=== PATIENT | female | born 1960 | race Caucasian/White ===

== ENCOUNTER 2016-05-28 04:49 | Emergency (ER) | payer BC ==
[2016-05-28 05:38] LABS: Hematocrit 44 % (35-47); Hemoglobin 14.5 g/dl (12.0-16.0); Mean Corpuscular HGB Conc 33 g/dl (31-36); Mean Corpuscular Hemoglobin 29 pg (27-31); Mean Corpuscular Volume 87 fL (80-97); Mean Platelet Volume 8 um3 (7.4-10.4); Red Blood Count 5.05 10^6/ul (4.0-5.4); Red Cell Distribution Width 13 % (10.5-15); White Blood Count 8.1 10^3/ul (3.5-10.8)
[2016-05-28] MEDS ORDERED: Morphine INJ* 4 MG/ML 1 ML CARPUJECT IV ONE ×2 (05:46→06:40)
[2016-05-28] MEDS ORDERED: Ondansetron INJ* 2 MG/ML VIAL IV ONE (05:46)
[2016-05-28] MEDS ORDERED: NS 0.9% 1000 ML* 1,000 ML IV ONE (05:46)
--- NOTE | 2016-05-28 05:46 | ED ---
Abdominal Pain/Female - HPI Summary HPI Summary: 55F presenting for epigastric pain since 0200, acute onset. Had similar painful episode 2 days ago which resolved. Takes NSAIDs for migraine headaches intermittently - no melena, no pain with eating. - History of Current Complaint Chief Complaint: EDAbdPain Stated Complaint: ABD PAIN Time Seen by Provider: 05/28/16 05:01 Hx Obtained From: Patient ?: No Onset/Duration: Lasting Days Timing: Intermittent Episode Lasting - minutes Pain Intensity: 8 Pain Scale Used: 0-10 Numeric Radiates: Yes Radiates to: Back Character: Dull Aggravating Factor(s): Food Alleviating Factor(s): Nothing Associated Signs and Symptoms: Negative: Fever, Dizzy, Back Pain, Constipation, Blood in Stool, Urinary Symptoms Allergies/Adverse Reactions: Allergies Allergy/AdvReac Type Severity Reaction Status Date / Time No Known Allergies Allergy Verified 07/22/14 13:54 PMH/Surg Hx/FS Hx/Imm Hx Previously Healthy: Yes Endocrine/Hematology History: Reports: Hx Thyroid Disease - Cancer History Hx Chemotherapy: No Hx Radiation Therapy: No - Surgical History Surgery Procedure, Year, and Place: [facility] Infectious Disease History: No Infectious Disease History: Denies: Traveled Outside the [place] in Last 30 Days - Family History Known Family History: Positive: None - Social History Alcohol Use: Occasionally Substance Use Type: Reports: None Smoking Status (MU): Never Smoked Tobacco Review of Systems Constitutional: Negative Eyes: Negative ENT: Negative Cardiovascular: Negative Respiratory: Negative Gastrointestinal: Negative Genitourinary: Negative Musculoskeletal: Negative Skin: Negative Neurological: Negative Psychological: Normal All Other Systems Reviewed And Are Negative: Yes Physical Exam Vital Signs On Initial Exam: Initial Vitals Temp Pulse Resp BP Pulse Ox 36.4 C 75 16 129/98 100 05/28/16 04:51 05/28/16 04:51 05/28/16 04:51 05/28/16 04:51 05/28/16 04:51 Diagnostics - Vital Signs Vital Signs Temp Pulse Resp BP Pulse Ox 05/28/16 04:51 36.4 C 75 16 129/98 100 - Laboratory Lab Results: Lab Results 05/28/16 Range/Units 05:10 WBC 8.1 (3.5-10.8) 10^3/ul RBC 5.05 (4.0-5.4) 10^6/ul Hgb 14.5 (12.0-16.0) g/dl Hct 44 (35-47) % MCV 87 (80-97) fL MCH 29 (27-31) pg MCHC 33 (31-36) g/dl RDW 13 (10.5-15) % Plt Count 288 (150-450) 10^3/ul MPV 8 (7.4-10.4) um3 Neut % (Auto) 49.4 (38-83) % Lymph % (Auto) 41.3 (25-47) % Taney % (Auto) 7.5 (1-9) % Eos % (Auto) 1.4 (0-6) % Baso % (Auto) 0.4 (0-2) % Absolute Neuts (auto) 4.0 (1.5-7.7) 10^3/ul Absolute Lymphs (auto) 3.3 (1.0-4.8) 10^3/ul Absolute Monos (auto) 0.6 (0-0.8) 10^3/ul Absolute Eos (auto) 0.1 (0-0.6) 10^3/ul Absolute Basos (auto) 0 (0-0.2) 10^3/ul Absolute Nucleated RBC 0 10^3/ul Nucleated RBC % 0 Result Diagrams: 05/28/16 05:10 05/28/16 05:10 Lab Statement: Any lab studies that have been ordered have been reviewed, and results considered in the medical decision making process. Re-Evaluation - Re-Evaluation First Eval Re-Evaluation Time: 06:30 Comment: VOMITED GI COCKTAIL Abdominal Pain Fem Course/Dx - Course Course Of Treatment: ACUTE ONSET, STUTTERING PRESENTATION OF RUQ PAIN - Diagnoses Differential Diagnosis: Positive: Gall Bladder Disease - STONE, CHOLECYSTITIS, BILIARY COLIC, GASTRITIS Provider Diagnoses: Right upper quadrant abdominal pain Discharge - Discharge Plan Condition: Fair Disposition: OTHER Discharge Disposition Comment: TO DR. HILL @ 0700, PENDING GB US AND RE-EVAL
[2016-05-28] MEDS ORDERED: Al Hydrox/Mg Hydrox/Simet LIQ* 30 ML UDC PO ONE (05:47)
[2016-05-28] MEDS ORDERED: Lidocaine 2% VISCOUS* 15 ML UDC PO ONE (05:47)
[2016-05-28 05:49] LABS: Albumin 4.6 g/dL (3.2-5.2); BUN/Creatinine Ratio 19.5 (8-20); Calcium 9.9 mg/dL (8.6-10.3); EGFR African American 99.7 (>60); EGFR Non-African American 77.5 (>60); Globulin 3.2 g/dL (2-4); Potassium 3.2 mmol/L (3.5-5.0); Total Bilirubin 0.3 mg/dL (0.2-1.0); Total Protein 7.8 g/dL (6.4-8.9)
[2016-05-28] MEDS ORDERED: Metoclopramide IV* 5 MG/ML 2 ML VIAL IV ONE (06:40)
[2016-05-28 07:41] LABS: Urine Bacteria Absent (Absent); Urine Bilirubin Negative (Negative); Urine Glucose Negative (Negative); Urine Nitrite Negative (Negative)
--- NOTE | 2016-05-28 08:35 | RAD ---
Indication: Right upper quadrant pain. Real-time sonography of the right upper quadrant was performed. The liver measures 17 cm in length. There is a complex cyst in the left lobe of liver measuring 2.7 x 2.3 x 2.7 cm. This was present on prior CT dated July 21, 2011. Additional cyst is noted in the dome of the right lobe of the liver measuring up to 1.6 cm. This was also present on prior CT. No solid lesion is identified. The gallbladder demonstrates multiple gallstones. Posterior acoustic shadowing is noted. Gallbladder wall thickening measures up to 6 mm. The right kidney measures 10.4 x 4.1 x 4.7 cm. Hypoechoic lesion in the right kidney measures 10 x 9 x 13 mm and may represent a small lipoma or angiomyolipoma. The pancreatic head, neck and proximal body demonstrates no mass or pancreatic ductal dilatation. The tail is not visualized due to overlying gas. Aorta and inferior vena cava are unremarkable. IMPRESSION: Cholelithiasis with gallbladder wall thickening however no sonographic Rockwell's sign is noted. Cysts in the left lobe of liver and right lobe of liver were present on prior CT dated 2011. 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
--- NOTE | 2016-05-28 11:26 | ED ---
Progress - Progress Note Progress Note: DISCUSSED RESULTS WITH PATIENT/. PATIENT PAIN FREE AND NON TENDER TO PALP AT 11:15. DISCHARGE HOME STABLE TO F/U WITH PMD/SURGERY. WILL RETURN IF WORSE. Re-Evaluation - Re-Evaluation First Eval Re-Evaluation Time: 06:30 Comment: VOMITED GI COCKTAIL Course/Dx - Course Course Of Treatment: ACUTE ONSET, STUTTERING PRESENTATION OF RUQ PAIN - Diagnoses Provider Diagnoses: Right upper quadrant abdominal pain
[2016-05-28 11:57] VITALS: BP 112/65
== END 2016-05-28 11:53 | disposition home or self-care (01) ==
LOC: ED 04:49
DX: R10.11 Right upper quadrant pain (principal)
CPT/HCPCS: 36415; 76705; 80053; 81003; 81015; 83690; 85025; 87086; 96374; 96375; 99282; A9270-GY; J2270; J2405; J2765

== ENCOUNTER 2016-06-12 13:45 | Observation (INO) | payer BC ==
[~2016-06-12 13:45] MED LIST: Buffered Lidocaine 1% SYR 3ML* 3 ML/SYR SYRINGE INTRADERM ONE; Famotidine IV* 10 MG/ML 2 ML (20 mg) IV ONE; Metoclopramide IV* 5 MG/ML 2 ML VIAL IV PRN; Morphine INJ* 2 MG/ML 1 ML CARPUJECT IV PRN; Scopolamine 1.5 mg* PATCH TRANSDERM ONE; fentaNYL* 50 MCG/ML 2 ML VIAL (100 MCG VIAL) IV PRN; oxyCODONE/Acetamin 5/325 MG* TAB PO PRN
[2016-06-12] MEDS ORDERED: Famotidine IV* 10 MG/ML 2 ML (20 mg) ONE (14:00)
[2016-06-12] MEDS ORDERED: Scopolamine 1.5 mg* PATCH ONE (14:00)
[2016-06-12] MEDS ORDERED: ceFAZolin 2 GM PREMIX (*) 2 GM/50 ML BAG IVPB ONE (14:00)
[2016-06-12] MEDS ORDERED: Morphine INJ* 10 MG/ML 1 ML CARPUJECT ONE (14:02)
[2016-06-12] MEDS ORDERED: fentaNYL* 50 MCG/ML 2 ML VIAL (100 MCG VIAL) ONE ×2 (14:02→20:35)
[2016-06-12] MEDS ORDERED: Atracurium* 10 MG/ML 10 ML VIAL ONE (14:02)
[2016-06-12] MEDS ORDERED: Midazolam* 1 MG/ML 5 ML VIAL (5 MG) ONE (14:03)
[2016-06-12] MEDS ORDERED: KETAMINE HCL* 50 MG/ML 10 ML VIAL ONE (14:03)
[2016-06-12] MEDS ORDERED: Dexamethasone IV* 4 MG/ML 1 ML (4 MG) ONE (14:25)
[2016-06-12] MEDS ORDERED: Ketorolac INJ* 30 MG/ML 1 ML VIAL ONE (14:25)
[2016-06-12] MEDS ORDERED: EPHEDrine (Pressors)* 50 MG/ML VIAL ONE (14:25)
[2016-06-12] MEDS ORDERED: Neostigmine Methylsulfate* 2 MG/2 ML SYRINGE ONE (14:25)
[2016-06-12] MEDS ORDERED: Lidocaine 2% PF * 5 ML VIAL ONE (14:25)
[2016-06-12] MEDS ORDERED: Propofol* 10 MG/ML 20 ML BTL IV PUSH ONE (14:25)
[2016-06-12] MEDS ORDERED: Ondansetron INJ* 2 MG/ML VIAL ONE (14:25)
[2016-06-12] MEDS ORDERED: Glycopyrrolate IV* 0.2 MG/ML 1 ML VIAL ONE (14:25)
[2016-06-12] MEDS ORDERED: PROCHLORPERAZINE INJ 5 MG/ML 2 ML VIAL ONE (14:25)
[2016-06-12] MEDS ORDERED: Bupivacaine 0.5% W/EPI SDV* 30 ML VIAL ONE (15:56)
--- NOTE | 2016-06-12 17:49 | PN ---
Progress Note - Progress Note Note: Brief Op note: Preop Dx: symptomatic cholelithiasis Postop Dx: same Procedure: laparoscopic cholecystectomy Anesthesia: GET Surgeon: Loretta Asst: MARITZA Gallego EBL: <100 ml Fluids: 1400 ml RL Specimen: gallbladder Drains: none Findings: dictated
[2016-06-12] MEDS ORDERED: Metoclopramide IV* 5 MG/ML 2 ML VIAL ONE (19:39)
[2016-06-12] MEDS ORDERED: HYDROcodone/ACETAMIN 5-325 MG* 1 TAB PO PRN ×2 (21:20)
[2016-06-12] MEDS ORDERED: Ketorolac INJ* 30 MG/ML 1 ML VIAL IV PRN (21:21)
[2016-06-12] MEDS ORDERED: Fluticasone NASAL SPRAY 50MCG* 16 gm SPRAY BTL BOTH NARES PRN (22:04)
[2016-06-12] MEDS ORDERED: SUMAtriptan TAB* 25 MG PO PRN (22:05)
[2016-06-12] MEDS ORDERED: Ondansetron INJ* 2 MG/ML VIAL IV PRN (22:49)
[2016-06-13] MEDS ORDERED: Levothyroxine TAB* 75 MCG TAB PO SCH (06:00)
[2016-06-13 08:04] VITALS: BP 106/57
[2016-06-13] MEDS ORDERED: Topiramate TAB(*) 100 MG PO SCH (09:00)
[2016-06-13] MEDS ORDERED: Vitamin THERAPEUTIC TAB PO SCH (09:00)
--- NOTE | 2016-06-13 09:08 | PN ---
Progress Note - Progress Note SOAP: DISCHARGE NOTE Subjective: No pain. NO N/V. Objective: Vital Signs Temp 97.6 F 06/13/16 07:22 Pulse 65 06/13/16 07:22 Resp 18 06/13/16 08:00 BP 106/57 06/13/16 07:22 Pulse Ox 100 06/13/16 07:22 Intake & Output 06/12/16 06/13/16 06/13/16 18:59 06:59 18:59 Intake Total 1750 540 Output Total 0 1050 Balance 1750 -510 Weight 193 lb 12.8 oz Intake: IV Fluids 1750 NS 50ML, Cefazolin 2G 50 lr 1700 Oral 540 Output: Urine 0 1050 Other: Estimated Blood Loss minimal Comment NAD abd: ND, soft, incis c/d/i; +BS Assessment: POD#1 s/p francia tran Plan: D/C home.
--- NOTE | 2016-06-13 13:16 | OP ---
DATE OF OPERATION: 06/12/16 - ROOM #[id number] DATE OF : 58 SURGEON: Naldo Burgos MD KINDER[place]ART[place] PARAPROFESSIONAL: MARITZA Tapia ANESTHESIOLOGIST: Davis Ralph MD ANESTHESIA: General endotracheal. PRE-OP DIAGNOSIS: Symptomatic gallstones. POST-OP DIAGNOSIS: Symptomatic gallstones. OPERATIVE PROCEDURE: Laparoscopic cholecystectomy. ESTIMATED BLOOD LOSS: 10 mL. IV FLUIDS: Crystalloid. SPECIMEN: Gallbladder contents. DRAINS: None. COMPLICATIONS: None. COUNTS: The instrument, needle, and sponge counts were correct. DESCRIPTION OF PROCEDURE: The patient was brought to the operating room and placed on to the operating room table in supine position. Sequential compression devices were placed on both lower extremities and general anesthetic was administered. Intravenous antibiotics were administered. The patient had her abdomen prepped and draped in usual sterile fashion and time- out was performed. Local anesthetic was infiltrated into the skin and soft tissue prior to making each incision. Entry to the abdomen was through a transumbilical vertical incision using an open technique. After accessing the peritoneal cavity, a 12 mm trocar was placed and carbon dioxide was insufflated to a pressure of 15 mmHg. Under direct visualization, three 5 mm trocars were placed; one in the subxiphoid position, 2 in the right upper quadrant. The gallbladder was inspected and noted to have changes consistent with chronic cholecystitis. It was grasped at the fundus and retracted superiorly and the infundibulum was grasped and retracted laterally to expose triangle of Calot. The peritoneum investing the gallbladder was incised both medially and laterally over the infundibulum and this was bluntly dissected free and the infundibular-cystic duct junction was identified. The cystic artery was also dissected out. A critical field was obtained. The cystic duct was doubly clipped and divided. The cystic artery was doubly clipped and divided. The gallbladder was divided from the attachments to the liver bed using the hook cautery, staying in an vascular plane. Once the gallbladder was freed, this was placed in an endoscopic retrieval bag and brought out through the umbilical site. During removal of the gallbladder, there was rupture of the bag and the gallbladder was torn. There were no intraperitoneal spillage. The gallbladder and stones were submitted to pathology. After reestablishing pneumoperitoneum, inspection revealed hemostasis to be excellent and clips were intact. The ports were then removed under direct visualization and carbon dioxide was released. The umbilicus was closed with 0 Polysorb in a [id number] fashion to approximate the fascia. The skin incisions were all closed with 4-0 Monocryl in subcuticular fashion and Steri- Strips were applied. The patient was extubated and transferred to recovery room in stable condition. CC: Jose Foster MD * [id number]/[facility] #: [id number] MTDD
[2016-06-13] MEDS ORDERED: Montelukast Sodium TAB* 10 MG PO SCH (18:00)
[2016-06-15] MEDS ORDERED: Scopolamine PATCH Remove* 1 NOTE MISC PATCH OFF ONE (06:00)
--- NOTE | 2017-03-10 10:35 | DS ---
CC: Jose Foster MD * DISCHARGE SUMMARY: DATE OF ADMISSION: 06/12/16 DATE OF DISCHARGE: 06/13/16 DISCHARGE DIAGNOSIS: Symptomatic cholelithiasis. PROCEDURE: Laparoscopic cholecystectomy on 06/12/16. HOSPITAL COURSE: The patient is a 56-year-old female, who was admitted on 06/12 for an elective laparoscopic cholecystectomy due to symptomatic cholelithiasis. In the postoperative period, the patient was observed overnight in the hospital for postoperative issues with pain, dizziness, and she did well overnight. Her diet was advanced and she was able to be discharged the following morning and her pathology showed chronic cholecystitis with cholelithiasis. She had no additional test pending. [id number]/[facility] #: [id number] MTDD
== END 2016-06-13 10:10 | disposition home or self-care (01) ==
LOC: OR 13:45 → SSU 21:45
PROVIDERS: ADMIT Surgery; ATTEND Surgery
PROC: 0FT44ZZ Resection of Gallbladder, Percutaneous Endoscopic Approach (ICD-10-PCS; principal; 2016-06-12 15:15)
DX: K80.20 Calculus of gallbladder without cholecystitis without obstruction (principal); E07.9 Disorder of thyroid, unspecified; Z79.899 Other long term (current) drug therapy
CPT/HCPCS: 88304; A9270-GY; C1776; G0378; J0690; J0780; J1100; J1885; J2250; J2270; J2405; J2704; J2765; J3010

== ENCOUNTER 2016-09-30 06:48 | Day surgery (SDC) | payer BC ==
[~2016-09-30 06:48] MED LIST changes: +Acetaminophen TAB* 325 MG PO PRN; +Buffered Lidocaine 0.9% SYRIN* 5 ML/SYR SYRINGE INTRADERM ONE; -Buffered Lidocaine 1% SYR 3ML* 3 ML/SYR SYRINGE INTRADERM ONE; -Famotidine IV* 10 MG/ML 2 ML (20 mg) IV ONE; -Metoclopramide IV* 5 MG/ML 2 ML VIAL IV PRN; -Morphine INJ* 2 MG/ML 1 ML CARPUJECT IV PRN; -Scopolamine 1.5 mg* PATCH TRANSDERM ONE; -fentaNYL* 50 MCG/ML 2 ML VIAL (100 MCG VIAL) IV PRN; -oxyCODONE/Acetamin 5/325 MG* TAB PO PRN
[2016-09-30] MEDS ORDERED: Cyclopentolate 1% OPTH.SOL* 2 ML BTL ONE (07:10)
[2016-09-30] MEDS ORDERED: Lidocaine 2% EPI 1:200000 MPF* 20 ML VIAL ONE (07:10)
[2016-09-30] MEDS ORDERED: Phenylephrine 2.5% OPTH.SOL* 2 ML BTL ONE (07:10)
[2016-09-30] MEDS ORDERED: acetaZOLAMIDE TAB* 250 MG ONE (07:10)
[2016-09-30] MEDS ORDERED: Povidone Iodine 5% OPTH* 30 ML BTL ONE (07:10)
[2016-09-30] MEDS ORDERED: Flurbiprofen 0.03% OPTH.SOL* 2.5 ML BTL ONE (07:10)
[2016-09-30] MEDS ORDERED: Lidocaine 1% MPF* 2 ML VIAL ONE (07:10)
[2016-09-30] MEDS ORDERED: Neomycin/Polymy/Dex OPTH.SUSP* MAXITROL 0.1% 5 ML ONE (07:10)
[2016-09-30] MEDS ORDERED: Proparacaine 0.5% OPHTH.SOL* 15 ML BTL ONE (07:11)
[2016-09-30] MEDS ORDERED: Buffered Lidocaine 0.9% SYRIN* 5 ML/SYR SYRINGE ONE (07:11)
[2016-09-30] MEDS ORDERED: Midazolam* 1 MG/ML 5 ML VIAL (5 MG) ONE (07:43)
[2016-09-30] MEDS ORDERED: Ondansetron INJ* 2 MG/ML VIAL ONE (08:14)
[2016-09-30 08:57] VITALS: BP 114/75
--- NOTE | 2016-09-30 09:23 | OP ---
DATE OF OPERATION: 09/30/16 - [facility] DATE OF : 58 SURGEON: Jose Johnson M.D. PREOPERATIVE DIAGNOSIS: Cataract, right eye. POSTOPERATIVE DIAGNOSIS: Cataract, right eye. OPERATIVE PROCEDURE: Phacoemulsification right eye with IOL. DESCRIPTION OF PROCEDURE: The patient was brought to the operating room after being given 1/2% Alcaine with epinephrine drops in the preoperative area. The eye was prepped and draped in the usual sterile fashion. Sterile drape and eyelid speculum were placed. Again, topical 1/2% Alcaine with epinephrine was given. A paracentesis incision was made at the 6 o'clock position with the No.75 blade. Clear cornea incision 2.2 x 2.2-mm was created at the 9 o'clock position starting at the anterior limbus using the 2.2-mm keratome. The anterior chamber was irrigated with 0.4 mL of 1% non-preservative intracameral lidocaine and filled with DisCoVisc. A capsulorrhexis was completed using the cystotome and the Utrata forceps. Hydrodissection was performed with balanced salt solution. The lens nucleus was removed with the Phacoemulsification handpiece without incident. Cortex was removed with the irrigation-aspiration handpiece. The capsular bag was re-inflated using DisCoVisc and an [id number] 20 implant was inserted with the shooter. The irrigation-aspiration handpiece was used to remove all residual DisCoVisc. The eye was refilled with balanced salt solution and the wound checked and found to be watertight. Topical Maxitrol drops were given. [id number]/[facility] #: [id number] [facility]
== END 2016-09-30 08:59 | disposition home or self-care (01) ==
LOC: OREAST 06:48
PROVIDERS: ATTEND Specialist
DX: H25.811 Combined forms of age-related cataract, right eye (principal); E03.9 Hypothyroidism, unspecified; E78.5 Hyperlipidemia, unspecified; J30.9 Allergic rhinitis, unspecified
CPT/HCPCS: A9270-GY; J2250; J2405; V2632

== ENCOUNTER 2016-10-07 06:51 | Day surgery (SDC) | payer BC ==
[2016-10-07] MEDS ORDERED: Midazolam* 1 MG/ML 2 ML VIAL (2 MG) ONE (08:37)
[2016-10-07] MEDS ORDERED: diPHENhydraMINE MDV* 50 MG/ML VIAL ONE (08:39)
[2016-10-07 09:17] VITALS: BP 125/65
[2016-10-07] MEDS ORDERED: Lidocaine 2% EPI 1:200000 MPF* 20 ML VIAL ONE (09:30)
[2016-10-07] MEDS ORDERED: Neomycin/Polym/HC OPTH.SUSP* 10 ML ONE (09:30)
[2016-10-07] MEDS ORDERED: acetaZOLAMIDE TAB* 250 MG ONE (09:30)
[2016-10-07] MEDS ORDERED: Proparacaine 0.5% OPHTH.SOL* 15 ML BTL ONE (09:30)
[2016-10-07] MEDS ORDERED: Cyclopentolate 1% OPTH.SOL* 2 ML BTL ONE (09:30)
[2016-10-07] MEDS ORDERED: Flurbiprofen 0.03% OPTH.SOL* 2.5 ML BTL ONE (09:30)
[2016-10-07] MEDS ORDERED: Lidocaine 2% MPF* 2 ML VIAL ONE (09:30)
[2016-10-07] MEDS ORDERED: Povidone Iodine 5% OPTH* 30 ML BTL ONE (09:30)
[2016-10-07] MEDS ORDERED: Phenylephrine 2.5% OPTH.SOL* 2 ML BTL ONE (09:30)
--- NOTE | 2016-10-07 11:18 | OP ---
DATE OF OPERATION: 10/07/2016. DATE OF : 1960. SURGEON: Jose Johnson M.D. PREOPERATIVE DIAGNOSIS: Cataract left eye. POSTOPERATIVE DIAGNOSIS: Cataract left eye. OPERATIVE PROCEDURE: Phacoemulsification left eye with IOL. PROCEDURE: The patient was brought to the operating room after being given 1/2% Alcaine with epinep hrine drops in the preoperative area. The eye was prepped and draped in the usual sterile fashion. Sterile drape and eyelid speculum were placed. Again, topical 1/2% Alcaine with epinephrine was gi mirtha. A paracentesis incision was made at the 3 o'clock position with the No.75 blade. Clear cornea incision 2.2 x 2.2-mm was created at the 6 o'clock position starting at the anterior limbus using t he 2.2-mm keratome. The anterior chamber was irrigated with 0.4 mL of 1% non-preservative intracame ral lidocaine and filled with DisCoVisc. A capsulorrhexis was completed using the cystotome and the Utrata forceps. Hydrodissection was performed with balanced salt solution. The lens nucleus was re moved with the Phacoemulsification handpiece without incident. Cortex was removed with the irrigati on-aspiration handpiece. The capsular bag was re-inflated using DisCoVisc and an SN60WF 19.5 implan t was inserted with the shooter. The irrigation-aspiration handpiece was used to remove all residua l DisCoVisc. The eye was refilled with balanced salt solution and the wound checked and found to be watertight. Topical Maxitrol drops were given. [id number]/[facility] #: [id number]
== END 2016-10-07 09:10 | disposition home or self-care (01) ==
LOC: OREAST 06:51
PROVIDERS: ATTEND Specialist
DX: H25.812 Combined forms of age-related cataract, left eye (principal)
CPT/HCPCS: A9270-GY; J2250; V2632